=== PATIENT | male | born 1940 | race Caucasian/White ===

== ENCOUNTER 2021-05-28 17:33 | Emergency (ER) | payer MEDICARE, BC ==
--- NOTE | 2021-05-28 18:02 | EDM.PDOC ---
ED HPI GENERAL MEDICAL PROBLEM - General Chief Complaint: Respiratory Problem Stated Complaint: SOB Time Seen by Provider: 05/28/21 17:36 Source of Information: Reports: Patient, Family History Limitations: Reports: No Limitations - History of Present Illness INITIAL COMMENTS - FREE TEXT/NARRATIVE: Patient presents with dyspnea over last couple days. He is 3 weeks S/P CABG x 3 at [facility] in [place]. He has been doing well except this mild dyspnea for about 2 days, daughter says a little longer than that. He denies any pain in chest, neck, jaw, arms. Denies headache, lightheadedness, vomiting. Did have a bit of nausea but denies now. - Related Data Allergies Allergy/AdvReac Type Severity Reaction Status Date / Time No Known Drug Allergies Allergy Cannot Verified 05/28/21 18:04 Remember Home Meds: Home Meds Acetaminophen [Tylenol] 1 tab PO Q4HR PRN 05/27/14 [History] Doxazosin Mesylate 1 tab PO DAILY 05/27/14 [History] Levothyroxine Sodium 1 tab PO DAILY 05/27/14 [History] Multivitamin with Minerals [Multiple Vitamin] 1 tab PO DAILY 05/27/14 [History] Simvastatin 1 tab PO DAILY 05/27/14 [History] traZODone HCl [Trazodone HCl] 0.5 tab PO BEDTIME PRN 05/27/14 [History] Docusate Sodium 250 mg PO DAILY 05/28/21 [History] Hydrocodone/Acetaminophen [HYDROcodone-Acetaminophen 5-325 MG] 1 tab PO Q4H PRN 05/28/21 [History] Ketoconazole [Nizoral 2% Crm] 1 applic TOP ASDIRECTED 05/28/21 [History] Metoprolol Succinate 100 mg PO BID 05/28/21 [History] Miconazole Nitrate [Zeasorb AF] 1 applic TOP DAILY 05/28/21 [History] Omeprazole 20 mg PO DAILY 05/28/21 [History] ED ROS GENERAL - Review of Systems Review Of Systems: See Below Constitutional: Denies: Fever, Chills, Malaise, Weakness HEENT: Denies: Ear Pain, Throat Pain, Vision Change Respiratory: Reports: Shortness of Breath (mild). Denies: Cough Cardiovascular: Denies: Chest Pain, Lightheadedness, Syncope Endocrine: Denies: Fatigue GI/Abdominal: Denies: Abdominal Pain, Diarrhea, Vomiting : Denies: Dysuria, Flank Pain Musculoskeletal: Denies: Neck Pain, Shoulder Pain, Arm Pain, Back Pain, Hand Pain, Leg Pain Skin: Denies: Cyanosis, Jaundice, Mottled, Pallor, Diaphoresis Neurological: Denies: Confusion, Dizziness, Headache, Seizure, Syncope, Trouble Speaking, Difficulty Walking Psychiatric: Denies: Agitation, Anxiety, Confusion Hematologic/Lymphatic: Denies: Anemia ED EXAM, GENERAL - Physical Exam Exam: See Below Exam Limited By: No Limitations General Appearance: Alert, WD/WN, No Apparent Distress Eye Exam: Bilateral Eye: EOMI, Normal Inspection, PERRL Ears: Normal External Exam, Hearing Grossly Normal Nose: Normal Inspection, No Blood Throat/Mouth: Normal Inspection, Normal Lips, Normal Voice, No Airway Compromise Head: Atraumatic, Normocephalic Neck: Normal Inspection, Full Range of Motion Respiratory/Chest: No Respiratory Distress, Decreased Breath Sounds (left). No: Crackles, Rales, Rhonchi, Wheezing, Stridor Cardiovascular: Regular Rate, Rhythm, No Murmur GI/Abdominal: Soft, Non-Tender Back Exam: Normal Inspection, Full Range of Motion. No: CVA Tenderness (L), CVA Tenderness (R) Extremities: Normal Inspection, Normal Range of Motion Neurological: Alert, Oriented, Normal Cognition, No Motor/Sensory Deficits Psychiatric: Normal Affect, Normal Mood Skin Exam: Warm, Dry, Intact, Normal Color, No Rash Course - Vital Signs Last Recorded V/S: Last Vital Signs Temp 97.2 F 05/28/21 18:02 Pulse 95 05/28/21 18:02 Resp 20 05/28/21 18:02 BP 162/102 H 05/28/21 18:02 Pulse Ox 92 L 05/28/21 18:02 - Orders/Labs/Meds Orders: Active Orders 24 hr Category Date Time Status Sodium Chloride 0.9% [Normal Saline] 50 ml Med 05/28/21 18:45 Active IV ASDIRECTED Medication Orders Sodium Chloride (Normal Saline) 50 mls @ 200 mls/min IV ASDIRECTED ALFONZO Last Admin: 05/28/21 19:29 Dose: 200 mls/min Documented by: AMARA Labs: Laboratory Tests 09/23/21 09/23/21 09/23/21 Range/Units 18:05 18:05 18:05 WBC 8.21 (5.00-10.00) 10^3/uL RBC 4.10 L (4.50-6.00) 10^6/uL Hgb 12.4 L (13.0-17.0) g/dL Hct 37.4 L (40.0-52.0) % MCV 91.2 (82.0-92.0) fL MCH 30.2 (27.0-31.0) pg MCHC 33.2 (32.0-36.0) g/dL RDW 13.6 (11.5-14.5) % Plt Count 343 D (150-400) 10^3/uL MPV 7.8 (7.4-10.4) fL Immature Gran % (Auto) 0.4 (0.0-5.0) % Neut % (Auto) 73.8 H (50.0-70.0) % Lymph % (Auto) 15.0 L (20.0-40.0) % [place] % (Auto) 7.8 (2.0-8.0) % Eos % (Auto) 3.0 (1.0-3.0) % Baso % (Auto) 0.0 (0.0-1.0) % Neut # (Auto) 6.06 (2.50-7.00) 10^3/uL Lymph # (Auto) 1.23 (1.00-4.00) 10^3/uL [place] # (Auto) 0.64 (0.10-0.80) 10^3/uL Eos # (Auto) 0.25 (0.10-0.30) 10^3/uL Baso # (Auto) 0.00 (0.00-0.10) 10^3/uL Immature Gran # (Auto) 0.03 (0.00-0.50) 10^3/uL D-Dimer, Quantitative 2210 H (<400) ng/mL Sodium 133 L (136-145) mmol/L Potassium 4.3 (3.5-5.1) mmol/L Chloride 97 L (98-107) mmol/L Carbon Dioxide 25.6 (21.0-32.0) mmol/L Anion Gap 14.7 (5-15) mmol/L BUN 26 H (7-18) mg/dL Creatinine 1.36 H (0.51-1.17) mg/dL Est Cr Clr Drug Dosing 34.87 mL/min Estimated GFR (MDRD) 50 mL/min Glucose 135 (70-140) mg/dL Calcium 8.7 (8.7-10.3) mg/dL Meds: Medications Generic Name Dose Route Start Last Admin Trade Name Freq PRN Reason Stop Dose Admin Sodium Chloride 50 mls @ 200 mls/min 05/28/21 18:45 05/28/21 19:29 Normal Saline IV 200 mls/min ASDIRECTED ALFONZO Administration Discontinued Medications Generic Name Dose Route Start Last Admin Trade Name Freq PRN Reason Stop Dose Admin Sodium Chloride 1,000 mls @ 999 mls/hr 05/28/21 18:41 05/28/21 19:29 Normal Saline IV 05/28/21 19:41 999 mls/hr .BOLUS ONE Administration Iopamidol 75 ml 05/28/21 18:44 05/28/21 19:29 Iopamidol 755 Mg/Ml 75 Ml Bottle IVPUSH 05/28/21 18:45 75 ml ONETIME ONE Administration Labetalol HCl 20 mg 05/28/21 20:06 Labetalol 100 Mg/20 Ml Mdv IVPUSH 05/28/21 20:07 ONETIME ONE Protocol - Re-Assessments/Exams Free Text/Narrative Re-Assessment/Exam: 05/28/21 19:53 D-dimer 2210. Renal function stable at baseline. CXR shows medium to large left pleural effusion. CT is pending. 05/28/21 20:[address] Kennedy, hospitalist at [facility] prior to CT report and he wanted to get report before deciding for sure. CT reports large left pleural effusion with mild loculation and minimal right simple appearing pleural effusion. Dr. Kennedy accepted and we are now waiting on room number. Patient sats dropped to 89% so on 2 liters oxygen. BP elevated to 199/123 and giving Labetalol now. Discussed findings and treatment plan with patient and his SO. 05/28/21 20:21 BP is still elevated, first dose of Labetalol just in. EMS almost here. Will s ign note to send with them. Departure - Departure Time of Disposition: 20:24 Disposition: DC/Tfer to Acute Hospital 02 Condition: Good Clinical Impression: Pleural effusion on left, S/P CABG x 3 Dyspnea Qualifiers: Dyspnea type: unspecified Qualified Code(s): R06.00 - Dyspnea, unspecified Hypertension Qualifiers: Hypertension type: unspecified Qualified Code(s): I10 - Essential (primary) hypertension - Discharge Information Forms: ED Department Discharge Sepsis Event Note (ED) - Focused Exam Vital Signs: Vital Signs Temp Pulse Resp BP Pulse Ox 05/28/21 18:02 97.2 F 95 20 162/102 H 92 L - My Orders Last 24 Hours: My Active Orders 05/28/21 18:45 Sodium Chloride 0.9% [Normal Saline] 50 ml IV ASDIRECTED - Assessment/Plan Last 24 Hours: My Active Orders 05/28/21 18:45 Sodium Chloride 0.9% [Normal Saline] 50 ml IV ASDIRECTED
[2021-05-28 18:28] LABS: ANION GAP 14.7 mmol/L (5-15)
[2021-05-28] MEDS ORDERED: Sodium Chloride 0.9% 1,000 ML IV ONE (18:41)
[2021-05-28] MEDS ORDERED: Iopamidol 755 Mg/ML 75 ML Bottle IVPUSH ONE (18:44)
[2021-05-28] MEDS ORDERED: Sodium Chloride 0.9% 50 ML IV SCH (18:45)
--- NOTE | 2021-05-28 19:10 | CR ---
[id number] RAD/RAD Chest PA And Lateral EXAM: FRONTAL AND LATERAL CHEST INDICATION: DYSPNEA, DIMINISHED LUNG SOUNDS ON LEFT. COMPARISON: May 27, 2014. DISCUSSION: Overexposure limits assessment of the parenchyma. There is a moderate to large left effusion. Interval sternotomy. Cardiomegaly. IMPRESSION: 1. Development of a moderate to large left effusion. Bassem Regalado MD 05/28/21 [id number] Thank you for allowing us to participate in the care of your patient.
--- NOTE | 2021-05-28 20:02 | CT ---
[id number] CT/CTA Chest EXAM: CT ANGIOGRAM CHEST INDICATION: ABN CXR, +DDIMER COMPARISON: Chest radiograph same date. DISCUSSION: The pulmonary arteries are normal in appearance with no emboli identified. Large left effusion with mild loculation. Small layering right pleural effusion. The left effusion results in near complete atelectasis of the left lower lobe and partial atelectasis of the left upper lobe. Borderline heart size. Small pericardial effusion. Recent sternotomy with changes of coronary artery bypass graft. No acute infiltrates. No thoracic adenopathy. Degenerative changes throughout the spine. 47 mm exophytic right renal hypodensity, favor complicated cyst, but indeterminate by density. IMPRESSION: 1. Large left pleural effusion with mild loculation. 2. Minimal right simple appearing pleural effusion. 3. Negative for pulmonary embolism. Bassem Regalado MD 05/28/212000 Thank you for allowing us to participate in the care of your patient.
[2021-05-28] MEDS ORDERED: Labetalol 100 MG/20 ML MDV IVPUSH ONE ×2 (20:06→20:30)
== END 2021-05-28 20:45 ==
LOC: KA.ED 17:33
DX: J90 Pleural effusion, not elsewhere classified (principal); I10 Essential (primary) hypertension; Z79.899 Other long term (current) drug therapy; Z95.1 Presence of aortocoronary bypass graft
CPT/HCPCS: 36415; 71046; 71275; 80048; 85025; 85379; 96374; 99284; 99285-25; J3490; J7030; Q9967

== ENCOUNTER 2021-07-18 11:55 | Emergency (ER) | payer MEDICARE, BC ==
--- NOTE | 2021-07-18 13:09 | EDM.PDOC ---
ED HPI GENERAL MEDICAL PROBLEM - General Stated Complaint: DRAINAGE TUBE SWELLING Time Seen by Provider: 07/18/21 12:14 Source of Information: Reports: Patient History Limitations: Reports: No Limitations - History of Present Illness INITIAL COMMENTS - FREE TEXT/NARRATIVE: Patient presents with pain in LUQ around his drain site. The drain is for a pleural effusion and has been draining up to 650 ml. He gets it drained 3 x/week by cardiac rehab. This developed after a triple CABG a couple months ago. - Related Data Allergies Allergy/AdvReac Type Severity Reaction Status Date / Time No Known Drug Allergies Allergy Cannot Verified 07/18/21 13:43 Remember Home Meds: Home Meds Acetaminophen [Tylenol] 650 mg PO Q4H PRN 05/27/14 [History] Doxazosin Mesylate 8 mg PO DAILY 05/27/14 [History] Levothyroxine Sodium 100 mcg PO DAILY 05/27/14 [History] Multivitamin with Minerals [Multiple Vitamin] 1 tab PO DAILY 05/27/14 [History] Simvastatin 20 mg PO DAILY 05/27/14 [History] traZODone HCl [Trazodone HCl] 25 mg PO BEDTIME PRN 05/27/14 [History] Docusate Sodium 250 mg PO DAILY 05/28/21 [History] Hydrocodone/Acetaminophen [HYDROcodone-Acetaminophen 5-325 MG] 1 tab PO Q4H PRN 05/28/21 [History] Ketoconazole [Nizoral 2% Crm] 1 applic TOP ASDIRECTED 05/28/21 [History] Metoprolol Succinate 100 mg PO BID 05/28/21 [History] Miconazole Nitrate [Zeasorb AF] 1 applic TOP DAILY 05/28/21 [History] Omeprazole 20 mg PO DAILY 05/28/21 [History] Past Medical History Cardiovascular History: Reports: Bypass, CAD, High Cholesterol, Hypertension Respiratory History: Reports: Bronchitis, Recurrent Musculoskeletal History: Reports: Fracture Psychiatric History: Reports: Depression Endocrine/Metabolic History: Reports: Hypothyroidism Oncologic (Cancer) History: Reports: Prostate Dermatologic History: Reports: Other (See Below) Other Dermatologic History: actinic keratosis, seccond degree burn to left foot. - Past Surgical History Head Surgeries/Procedures: Reports: None Cardiovascular Surgical History: Reports: Coronary Artery Bypass Musculoskeletal Surgical History: Reports: ORIF ED ROS GENERAL - Review of Systems Review Of Systems: See Below (abdominal blister/abscess) Constitutional: Denies: Fever, Chills, Malaise, Weakness HEENT: Reports: No Symptoms Respiratory: Denies: Shortness of Breath, Cough Cardiovascular: Denies: Chest Pain, Lightheadedness, Syncope GI/Abdominal: Denies: Diarrhea, Vomiting : Denies: Dysuria Musculoskeletal: Reports: No Symptoms Skin: Reports: Other Neurological: Reports: No Symptoms Psychiatric: Reports: No Symptoms ED EXAM, GI/ABD - Physical Exam Exam: See Below Exam Limited By: No Limitations General Appearance: Alert, WD/WN, No Apparent Distress Eyes: Bilateral: Normal Appearance, EOMI Ears: Normal External Exam, Hearing Grossly Normal Nose: Normal Inspection, No Blood Throat/Mouth: Normal Inspection, Normal Lips, Normal Voice, No Airway Compromise Head: Atraumatic, Normocephalic Neck: Normal Inspection, Full Range of Motion Respiratory/Chest: No Respiratory Distress, Lungs Clear, Normal Breath Sounds Cardiovascular: Regular Rate, Rhythm, No Murmur GI/Abdominal Exam: Soft, Non-Tender Back Exam: Normal Inspection, Full Range of Motion Extremities: Normal Inspection, Normal Range of Motion Neurological: Alert, Oriented, Normal Cognition, No Motor/Sensory Deficits Psychiatric: Normal Affect, Normal Mood Skin Exam: Warm, Dry, Intact, Normal Color, No Rash, Other (2 small superficial abscesses along/over the drain line and 3 inches lateral to drain site exit. Localized cellulitis of the abscesses and around the drain site. Largest abscess was opened by removing the tegaderm and cultured.) Course - Vital Signs Last Recorded V/S: Last Vital Signs Temp 98.6 F 07/18/21 12:00 Pulse 87 07/18/21 12:00 Resp 20 07/18/21 12:00 BP 151/89 H 07/18/21 12:00 Pulse Ox 93 L 07/18/21 12:00 - Orders/Labs/Meds Orders: Active Orders 24 hr Category Date Time Status CULTURE WOUND + SMEAR [RM] Stat Lab 07/18/21 13:29 Ordered Labs: Laboratory Tests 07/18/21 07/18/21 07/18/21 Range/Units 12:41 12:41 12:41 WBC 7.90 (5.00-10.00) 10^3/uL RBC 4.31 L (4.50-6.00) 10^6/uL Hgb 12.4 L (13.0-17.0) g/dL Hct 38.9 L (40.0-52.0) % MCV 90.3 (82.0-92.0) fL MCH 28.8 (27.0-31.0) pg MCHC 31.9 L (32.0-36.0) g/dL RDW 14.0 (11.5-14.5) % Plt Count 293 (150-400) 10^3/uL MPV 7.9 (7.4-10.4) fL Immature Gran % (Auto) 0.3 (0.0-5.0) % Neut % (Auto) 81.3 H (50.0-70.0) % Lymph % (Auto) 9.1 L (20.0-40.0) % [place] % (Auto) 8.2 H (2.0-8.0) % Eos % (Auto) 1.1 (1.0-3.0) % Baso % (Auto) 0.0 (0.0-1.0) % Neut # (Auto) 6.42 (2.50-7.00) 10^3/uL Lymph # (Auto) 0.72 L (1.00-4.00) 10^3/uL [place] # (Auto) 0.65 (0.10-0.80) 10^3/uL Eos # (Auto) 0.09 L (0.10-0.30) 10^3/uL Baso # (Auto) 0.00 (0.00-0.10) 10^3/uL Immature Gran # (Auto) 0.02 (0.00-0.50) 10^3/uL Sodium 140 (136-145) mmol/L Potassium 4.4 (3.5-5.1) mmol/L Chloride 103 (98-107) mmol/L Carbon Dioxide 26.3 (21.0-32.0) mmol/L Anion Gap 15.1 H (5-15) mmol/L BUN 19 H (7-18) mg/dL Creatinine 1.31 H (0.51-1.17) mg/dL Est Cr Clr Drug Dosing 36.20 mL/min Estimated GFR (MDRD) 53 mL/min Glucose 107 (70-140) mg/dL Lactic Acid 0.7 (0.4-2.0) mmol/L Calcium 8.8 (8.7-10.3) mg/dL Total Bilirubin 0.3 (0.2-1.0) mg/dL AST 32 (15-37) U/L ALT 82 H (14-63) U/L Alkaline Phosphatase 146 H (46-116) U/L C-Reactive Protein 29.9 H (0.0-0.9) mg/dL Total Protein 7.0 (6.4-8.2) g/dL Albumin 2.56 L (3.40-5.00) g/dL Meds: Medications Discontinued Medications Generic Name Dose Route Start Last Admin Trade Name Freq PRN Reason Stop Dose Admin Trimethoprim/Sulfamethoxazole 4 tab 07/18/21 13:20 07/18/21 13:44 Sulfamethoxazole/Trimethoprim 800-160 Mg Tab PO 07/18/21 13:21 4 tab ONETIME ONE Administration - Re-Assessments/Exams Free Text/Narrative Re-Assessment/Exam: 07/18/21 13:51 Drain site was cleaned with hydrogen peroxide and redressed with specific bandages patient brought along. CXR shows residual pleural parenchymal pathology left lung base. Treating with Bactrim DS; Rx #20 1 po q12h x 10 days. 4 doses given in ER to cover until Tuesday. My concern is that the infection could be migrating along the drain line into the pleural space. He will try to get back into cardiopulmonary who placed the drain, early in the week for recheck. Discussed findings and recommendations with patient and his SO and they will call for this visit on Tuesday. Patient stable at discharge. Departure - Departure Time of Disposition: 14:20 Disposition: Home, Self-Care 01 Condition: Good Clinical Impression: Abscess of skin of abdomen, Cellulitis of drainage site following surgery, Chronic pleural effusion - Discharge Information Referrals: Leatha Ferrell MD [Primary Care Provider] - Additional Instructions: Drink 8 cups of water daily. Take the Bactrim DS as directed. Tuesday, call the [facility] for recheck ERICA as we discussed. See Dr. Mcneill on Tuesday as scheduled. If worsening, recheck in clinic or ER as needed. Sepsis Event Note (ED) - Focused Exam Vital Signs: Vital Signs Temp Pulse Resp BP Pulse Ox 07/18/21 12:00 98.6 F 87 20 151/89 H 93 L - My Orders Last 24 Hours: My Active Orders 07/18/21 13:29 CULTURE WOUND + SMEAR [RM] Stat - Assessment/Plan Last 24 Hours: My Active Orders 07/18/21 13:29 CULTURE WOUND + SMEAR [RM] Stat
[2021-07-18] MEDS ORDERED: Sulfamethoxazole/Trimethoprim 800-160 MG Tab PO ONE (13:20)
[2021-07-18 13:23] LABS: ANION GAP 15.1 mmol/L (5-15)
--- NOTE | 2021-07-18 13:43 | CR ---
[id number] RAD/RAD Chest PA And Lateral EXAM: RAD Chest PA And Lateral CLINICAL DATA: INFECTION COMPARISON: CORRELATION IS MADE WITH 2020 FINDINGS: There is a Pleurx catheter at the left lung base There is residual infiltrate and effusion at the left base of the right lung is clear IMPRESSION: RESIDUAL PLEURAL PARENCHYMAL PATHOLOGY LEFT LUNG BASE CATHETER IN POSITION Jessee Suarez MD 07/18/21 [id number] Thank you for allowing us to participate in the care of your patient.
== END 2021-07-18 14:35 | disposition home or self-care (01) ==
LOC: KA.ED 11:55
DX: T81.49XA Infection following a procedure, other surgical site, initial encounter (principal); L03.311 Cellulitis of abdominal wall; L02.211 Cutaneous abscess of abdominal wall; J90 Pleural effusion, not elsewhere classified; I25.810 Atherosclerosis of coronary artery bypass graft(s) without angina pectoris; E78.00 Pure hypercholesterolemia, unspecified; I10 Essential (primary) hypertension; E03.9 Hypothyroidism, unspecified; Z79.899 Other long term (current) drug therapy
CPT/HCPCS: 36415; 71046; 80053; 83605; 85025; 86140; 87070; 87075; 87205; 99284-25; A9270-GY

== ENCOUNTER 2022-03-30 14:27 | Emergency (ER) | payer MEDICARE, BC | END 2022-03-30 17:20 | LOC: KA.ED 14:27 | DX: R00.1 Bradycardia, unspecified (principal); I25.10 Atherosclerotic heart disease of native coronary artery without angina pectoris; E78.00 Pure hypercholesterolemia, unspecified; I10 Essential (primary) hypertension; E03.9 Hypothyroidism, unspecified; Z79.899 Other long term (current) drug therapy; Z95.1 Presence of aortocoronary bypass graft; Z79.82 Long term (current) use of aspirin | CPT/HCPCS: 99284 ==

== ENCOUNTER 2023-03-30 12:01 | Emergency (ER) | payer MEDICARE, BC ==
[2023-03-30 12:20] LABS: EOSINOPHILS ABSOLUTE AUTO 0.03 10^3/uL (0.10-0.30); EOSINOPHILS PERCENT AUTO 0.3 % (1.0-3.0); HEMATOCRIT 37.9 % (40.0-52.0); HEMOGLOBIN 12.6 g/dL (13.0-17.0); IMMATURE GRAN ABSOLUTE AUTO 0.04 10^3/uL (0.00-0.50); IMMATURE GRAN PERCENT AUTO 0.4 % (0.0-5.0); LYMPHOCYTES ABSOLUTE AUTO 0.67 10^3/uL (1.00-4.00); LYMPHOCYTES PERCENT AUTO 7.1 % (20.0-40.0); MEAN CORPUSCULAR HEMOGLOBIN 29.7 pg (27.0-31.0); MEAN CORPUSCULAR HGB CONC 33.2 g/dL (32.0-36.0); MEAN CORPUSCULAR VOLUME 89.4 fL (82.0-92.0); MONOCYTES ABSOLUTE AUTO 0.43 10^3/uL (0.10-0.80); MONOCYTES PERCENT AUTO 4.6 % (2.0-8.0); NEUTROPHILS ABSOLUTE AUTO 8.24 10^3/uL (2.50-7.00); NEUTROPHILS PERCENT AUTO 87.6 % (50.0-70.0); PLATELET COUNT,PLT 222 10^3/uL (150-400); RED BLOOD CELL COUNT 4.24 10^6/uL (4.50-6.00); WHITE BLOOD CELL COUNT,WBC 9.41 10^3/uL (5.00-10.00)
[2023-03-30 12:45] LABS: ALBUMIN 3.19 g/dL (3.40-5.00); ANION GAP 15.7 mmol/L (5-15); BILIRUBIN TOTAL 0.5 mg/dL (0.2-1.0); CALCIUM 8.5 mg/dL (8.7-10.3); CARBON DIOXIDE,CO2 24.5 mmol/L (21.0-32.0); CREATININE 1.76 mg/dL (0.51-1.17); EST CRCL DRUG DOSING (CG) 27.1 mL/min; POTASSIUM,K 4.2 mmol/L (3.5-5.1); PROTEIN TOTAL,TP 6.9 g/dL (6.4-8.2); TSH ULTRASENSITIVE 3.92 uIU/mL (0.340-4.820)
[2023-03-30] MEDS ORDERED: Heparin Sodium 5,000 Units/ML Vial IVPUSH ONE (13:10)
[2023-03-30] MEDS ORDERED: Heparin Sodium/D5W 250 ML IV SCH (13:30)
[2023-03-30 13:53] LABS: PROTHROMBIN TIME 10.3 SEC (9.2-11.2); PTT,PARTIAL THROMBOPLSTIN TIME 27.2 SEC (22.8-31.4)
== END 2023-03-30 15:00 ==
LOC: KA.ED 12:01
DX: I21.4 Non-ST elevation (NSTEMI) myocardial infarction (principal); R77.8 Other specified abnormalities of plasma proteins; R09.89 Other specified symptoms and signs involving the circulatory and respiratory systems; I25.10 Atherosclerotic heart disease of native coronary artery without angina pectoris; I10 Essential (primary) hypertension; E78.00 Pure hypercholesterolemia, unspecified; E03.9 Hypothyroidism, unspecified; Z79.82 Long term (current) use of aspirin; Z79.899 Other long term (current) drug therapy
CPT/HCPCS: 36415; 71046; 80053; 83735; 83880; 84443; 84484; 85025; 85610; 85730; 93010; 96365; 99284; 99285-25; J1644

== ENCOUNTER 2023-07-09 10:10 | Emergency (ER) | payer MEDICARE, BC ==
[2023-07-09] MEDS ORDERED: Sodium Chloride 0.9% 1,000 ML IV ONE (10:18)
[2023-07-09 10:29] LABS: BASOPHILS ABSOLUTE AUTO 0.01 10^3/uL (0.00-0.10); BASOPHILS PERCENT AUTO 0.2 % (0.0-1.0); EOSINOPHILS ABSOLUTE AUTO 0.33 10^3/uL (0.10-0.30); HEMATOCRIT 33.5 % (40.0-52.0); IMMATURE GRAN ABSOLUTE AUTO 0.03 10^3/uL (0.00-0.50); IMMATURE GRAN PERCENT AUTO 0.5 % (0.0-5.0); LYMPHOCYTES ABSOLUTE AUTO 0.81 10^3/uL (1.00-4.00); LYMPHOCYTES PERCENT AUTO 12.2 % (20.0-40.0); MEAN CORPUSCULAR HEMOGLOBIN 29.1 pg (27.0-31.0); MEAN CORPUSCULAR HGB CONC 32.8 g/dL (32.0-36.0); MEAN CORPUSCULAR VOLUME 88.6 fL (82.0-92.0); MEAN PLATELET VOLUME 7.9 fL (7.4-10.4); MONOCYTES ABSOLUTE AUTO 0.47 10^3/uL (0.10-0.80); MONOCYTES PERCENT AUTO 7.1 % (2.0-8.0); NEUTROPHILS ABSOLUTE AUTO 4.98 10^3/uL (2.50-7.00); PLATELET COUNT,PLT 188 10^3/uL (150-400); RED BLOOD CELL COUNT 3.78 10^6/uL (4.50-6.00); RED CELL DISTRIBUTION WIDTH 13.1 % (11.5-14.5); WHITE BLOOD CELL COUNT,WBC 6.63 10^3/uL (5.00-10.00)
[2023-07-09 10:49] LABS: ANION GAP 10.4 mmol/L (5-15); CALCIUM 8.4 mg/dL (8.7-10.3); CARBON DIOXIDE,CO2 30.4 mmol/L (21.0-32.0); CREATININE 2.12 mg/dL (0.51-1.17); EST CRCL DRUG DOSING (CG) 21.62 mL/min; POTASSIUM,K 3.8 mmol/L (3.5-5.1)
== END 2023-07-09 11:48 | disposition home or self-care (01) ==
LOC: KA.ED 10:10
DX: R55 Syncope and collapse (principal); I10 Essential (primary) hypertension; E78.00 Pure hypercholesterolemia, unspecified; I25.10 Atherosclerotic heart disease of native coronary artery without angina pectoris; E03.9 Hypothyroidism, unspecified; Z95.1 Presence of aortocoronary bypass graft; Z79.82 Long term (current) use of aspirin; Z79.899 Other long term (current) drug therapy
CPT/HCPCS: 80048; 84484; 85025; 93005; 93010; 96360; 99284; 99284-25; J7030